=== PATIENT | female | born 1985 | race Caucasian/White ===

== ENCOUNTER 2021-10-01 16:49 | Inpatient (IN) ==
[2021-10-01] MEDS ORDERED: QUEtiapine Fumarate 25 MG TABLET PO PRN (19:36)
[2021-10-01] MEDS ORDERED: Melatonin 3 MG TABLET PO PRN (22:59)
[2021-10-01] MEDS ORDERED: hydrOXYzine pamoate 25 MG CAPSULE PO PRN (23:52)
[2021-10-01] MEDS ORDERED: Acetaminophen 325 MG TABLET PO PRN (23:52)
[2021-10-01] MEDS ORDERED: Haloperidol Lactate 5 MG/ML VIAL IM PRN (23:52)
[2021-10-01] MEDS ORDERED: MOM Conc 10 ML UD.LIQ PO PRN (23:52)
[2021-10-01] MEDS ORDERED: *HR* LORazepam 2 MG/ML VIAL IM PRN (23:52)
[2021-10-01] MEDS ORDERED: haloperidoL 5 MG TABLET PO PRN (23:52)
[2021-10-01] MEDS ORDERED: *HR* LORazepam 1 MG TABLET PO PRN (23:52)
[2021-10-01] MEDS ORDERED: Mag Hydrox/Al Hydrox/Simeth 30 ML UDC PO PRN (23:52)
[2021-10-02] MEDS ORDERED: Melatonin 3 MG TABLET PO SCH (21:00)
[2021-10-03 08:26] VITALS: BP 113/75; PULSE 78; TEMP 98.8; O2SAT 99
== END 2021-10-03 11:34 | disposition home or self-care (01) | DRG 753 ==
LOC: EMEROOARM 16:49 → 1ANU 19:27
PROVIDERS: ADMIT Psychiatry & Neurology Psychiatry; ATTEND Psychiatry & Neurology Psychiatry